=== PATIENT | male | born 1940 | race Caucasian/White ===

== ENCOUNTER 2016-09-12 22:20 | Emergency (ER) | payer MEDICARE, OTHER ==
[~2016-09-12 22:20] MED LIST: ACETAMINOPHEN325 MG PO; ARTANE2 MG PO; B COMPLEX1 EAC1 PO; BENADRYL25 MG PO; CHLORASEPTIC177 ML PO; CYMBALTA 30MG C30 MG PO; LAXATIVE OF CHOICE; LOVAZA1 GM PO; MIRALAX17 GM PO; OLANZAPINE10 MG PO; PEPCID AC20 MG PO; PLAVIX75 MG PO; PRAVACHOL40 MG PO; PRINIVIL20 MG PO; SYNTHROID75 MCG PO; VITAMIN D5000 UNIT PO
== END 2016-09-13 04:00 | disposition home or self-care (01) ==
LOC: FER 22:20
DX: K59.00 Constipation, unspecified (principal); I69.951 Hemiplegia and hemiparesis following unspecified cerebrovascular disease affecting right dominant side; I10 Essential (primary) hypertension; E78.5 Hyperlipidemia, unspecified; Z79.01 Long term (current) use of anticoagulants; Z98.890 Other specified postprocedural states
CPT/HCPCS: 74022; 99283

== ENCOUNTER 2021-03-22 15:48 | Inpatient (IN) | payer MEDICARE, OTHER ==
[~2021-03-22] VITALS: Ht 182.9 cm; Wt 96.9 kg
[~2021-03-22 15:48] MED LIST changes: +ASPIRIN325 MG PO; -B COMPLEX1 EAC1 PO; +B COMPLEX1 EACH PO; +CEFDINIR300 MG PO; +CRESTOR5 MG PO; +KEFLEX250 MG PO; +LEVAQUIN500 MG PO; +MUCUS RELIEF400 MG PO; +PROAIR HFA8.5 GM PO; +SEROQUEL 100MG100 MG PO; +SPIRIVA18 MCG INH; +VENTOLIN (2.5 MG/3 M INH; +WELLBUTRIN SR200 MG PO
[2021-03-22 16:22] LABS: BASOPHIL 0.2 % (0-2); EOSINOPHIL 0.4 % (0-7); HCT 41.3 % (42.0-52.0); HGB 13.3 g/dl (13.2-18.0); LYMPHOCYTE 27.4 % (15-48); MCH 28.1 pg (25.0-31.0); MCHC 32.2 g/dL (32.0-36.0); MCV 87.3 fL (78.0-100.0); MONOCYTE 8.2 % (0-12); MPV 9.3 fL (6.0-9.5); NEUTROPHIL 62.7 % (41-80); NRBC 0; PLT 156 K/uL (150-400); RBC 4.73 M/uL (4.70-6.00); RDW 13.9 % (11.5-14.0); WBC 5.4 K/uL (4.0-10.5)
[2021-03-22 16:41] LABS: ALBUMIN 3.6 g/dL (3.4-5.0); BILIRUBIN - TOTAL 0.4 mg/dL (0.2-1.0); BUN/CREAT RATIO (CALC) 18.7 RATIO; CREATININE 2.35 mg/dL (0.67-1.17); GLOBULIN (CALCULATION) 3.6 g/dL; POTASSIUM 4.4 mmol/L (3.5-5.1); TOTAL PROTEIN 7.2 g/dL (6.4-8.2)
[2021-03-22 17:53] LABS: BILIRUBIN 1+ mg/dL (NEGATIVE); BLOOD NEGATIVE Ery/uL (NEGATIVE); CLARITY CLEAR (CLEAR); COLOR YELLOW (YELLOW); GLUCOSE (U) NORMAL (NORMAL); LEUKOCYTES NEGATIVE Leu/uL (NEGATIVE); NITRITE NEGATIVE (NEGATIVE); PROTEIN TRACE (LOW) mg/dL (NEGATIVE); SPECIFIC GRAVITY >=1.030 (1.001-1.030); UROBILINOGEN 0.2 mg/dL (0.2-1.0); pH 5.5 (5.0-9.0)
[2021-03-23] MEDS ORDERED: PLAVIX75 MG PO (00:53)
[2021-03-23] MEDS ORDERED: LEXAPRO20 MG PO (00:54)
[2021-03-23] MEDS ORDERED: SYNTHROID112 MCG PO (00:54)
[2021-03-23] MEDS ORDERED: PRINIVIL20 MG PO (00:55)
[2021-03-23] MEDS ORDERED: PRAZOSIN HCL2 MG PO (00:56)
[2021-03-23] MEDS ORDERED: ATIVAN0.5 MG PO ×2 (00:56→13:44)
[2021-03-23 06:26] LABS: BASOPHIL 0.3 % (0-2); EOSINOPHIL 0 % (0-7); HCT 40.9 % (42.0-52.0); LYMPHOCYTE 29.2 % (15-48); MCHC 31.8 g/dL (32.0-36.0); MONOCYTE 3.6 % (0-12); MPV 9.7 fL (6.0-9.5); NEUTROPHIL 66.3 % (41-80); NRBC 0; PLT 148 K/uL (150-400); RBC 4.65 M/uL (4.70-6.00); WBC 3.6 K/uL (4.0-10.5)
[2021-03-23 06:59] LABS: BILIRUBIN - TOTAL 0.4 mg/dL (0.2-1.0); BUN/CREAT RATIO (CALC) 22.8 RATIO; CREATININE 2.02 mg/dL (0.67-1.17); GLOBULIN (CALCULATION) 3.8 g/dL; POTASSIUM 5.2 mmol/L (3.5-5.1); TOTAL PROTEIN 6.8 g/dL (6.4-8.2)
[2021-03-23] MEDS ORDERED: SEROQUEL 25MG T25 MG PO (13:44)
[2021-03-24 07:04] LABS: HCT 41.6 % (42.0-52.0); HGB 13.7 g/dl (13.2-18.0); MCH 28.1 pg (25.0-31.0); MCHC 32.9 g/dL (32.0-36.0); MCV 85.4 fL (78.0-100.0); MPV 9.8 fL (6.0-9.5); RBC 4.87 M/uL (4.70-6.00); RDW 13.8 % (11.5-14.0)
[2021-03-24 07:06] LABS: WBC 8.4 K/uL (4.0-10.5)
[2021-03-24 07:22] LABS: BUN/CREAT RATIO (CALC) 30.2 RATIO; CREATININE 1.62 mg/dL (0.67-1.17); POTASSIUM 4.7 mmol/L (3.5-5.1)
--- NOTE | 2021-03-24 12:23 | NUR ---
ADVISED DR. SAMUEL OF PT OBS ORDER SINCE 03/22/21. HE STATED THAT CC TOLD HIM THEY WOULD CHANGE THE ORDER. ASKED DR. SAMUEL TO PLEASE CHANGE ORDER TO INPT IF HE DEEMED APPROPRIATE. DR. SAMUEL STATED THAT HE WOULD CHANGE ORDER TO INPT.
[2021-03-26 06:10] LABS: HCT 40.1 % (42.0-52.0); HGB 13.1 g/dl (13.2-18.0); MCH 28.1 pg (25.0-31.0); MCHC 32.7 g/dL (32.0-36.0); MCV 86.1 fL (78.0-100.0); MPV 9.3 fL (6.0-9.5); RBC 4.66 M/uL (4.70-6.00); RDW 13.9 % (11.5-14.0); WBC 7.2 K/uL (4.0-10.5)
[2021-03-26 06:36] LABS: BUN/CREAT RATIO (CALC) 28.9 RATIO; CREATININE 1.52 mg/dL (0.67-1.17); POTASSIUM 4.5 mmol/L (3.5-5.1)
[2021-03-26] MEDS ORDERED: COLACE100 MG PO (13:55)
--- NOTE | 2021-03-26 14:35 | NUR ---
SPOKE WITH PT DAUGHTER I COULD NOT GET AHOLD OF SPOUSE. DAUGHTER, YOGI WALKER [phone]. ADVISED THAT SHE AND HER MOTHER ARE CURRENTLY TOGETHER. YOGI STATED THAT HER FATHER HAS A LIFT CHAIR, WHEELCHAIR AND BEDSIDE TOLIET. HE ALSO HAS [facility] [employer] FOR THE AGED. ADVISED HER THAT THE DOCTOR HAD ADVISED THAT PT WILL D/C HOME THIS DATE.
== END 2021-03-26 21:18 | disposition home health service (06) | DRG 177 ==
LOC: FER 15:48 → FMS 21:39
PROVIDERS: Emergency Medicine; Hospitalist; ADMIT Internal Medicine
PROC: 8E0ZXY6 Isolation (ICD-10-PCS; principal; 2021-03-22)
PROC: XW033E5 Introduction of Remdesivir Anti-infective into Peripheral Vein, Percutaneous Approach, New Technology Group 5 (ICD-10-PCS; 2021-03-22)
DX: U07.1 COVID-19 (principal); J12.82 Pneumonia due to coronavirus disease 2019; J96.01 Acute respiratory failure with hypoxia; J98.11 Atelectasis; K56.7 Ileus, unspecified; I69.351 Hemiplegia and hemiparesis following cerebral infarction affecting right dominant side; N17.9 Acute kidney failure, unspecified; F03.90 Unspecified dementia, unspecified severity, without behavioral disturbance, psychotic disturbance, mood disturbance, and anxiety; K40.90 Unilateral inguinal hernia, without obstruction or gangrene, not specified as recurrent; I10 Essential (primary) hypertension; E78.5 Hyperlipidemia, unspecified; E03.9 Hypothyroidism, unspecified; I69.928 Other speech and language deficits following unspecified cerebrovascular disease; Z90.89 Acquired absence of other organs; Z98.890 Other specified postprocedural states
CPT/HCPCS: 36415; 36600; 71045; 80048; 80053; 81003; 82803; 83690; 84145; 84484; 85025; 85379; 93971; 96372; 97162; 97167; 97530-GP; 97535; C9113; C9399; J1100; J1650; J2270; J2930; J7030; J7050; U0002